=== PATIENT | male | born 1995 | race Caucasian/White ===

== ENCOUNTER 2024-02-11 20:58 | Emergency (ER) | payer MEDICAID ==
[~2024-02-11] VITALS: Ht 188 cm; Wt 114.2 kg
[2024-02-11 23:13] LABS: BASOPHILS % 0.9 % (0.0-2.0); EOSINOPHILS % 3.3 % (0.0-5.0); HEMOGLOBIN. 13.6 g/dL (14.0-18.0); LYMPHOCYTES % 21.9 % (20.0-50.0); MEAN CORPUSCULAR HEMOGLOBIN 30.2 pg (28.0-32.0); MEAN CORPUSCULAR HGB CONC 33.9 g/dL (31.0-37.0); MEAN CORPUSCULAR VOLUME 88.9 fL (80.0-94.0); MEAN PLATELET VOLUME 8.1 fl (7.4-10.4); MONOCYTES % 8.8 % (2.0-8.0); NEUTROPHILS % 65.1 % (40.0-76.0); PLATELET 191 x1000/uL (130-400); WHITE BLOOD COUNT 14.4 x1000/uL (4.5-11.0)
[2024-02-11 23:25] LABS: TROPONIN I HIGH SENSITIVITY 15 ng/L (3.0-53)
[2024-02-11 23:59] LABS: CHLORIDE 107 mEq/L (98-107); POTASSIUM 3.9 mEq/L (3.5-5.1); SODIUM 138 mEq/L (136-145)
[2024-02-12] LABS: CARBON DIOXIDE 26 mEq/L (21-32); D-DIMER 0.33 mg/L FEU (<0.50); INR 0.9; PARTIAL THROMBOPLASTIN TIME 29.1 sec (23.4-31.0); PROTHROMBIN TIME 10.5 sec (9.6-11.0)
[2024-02-12 00:05] LABS: GLUCOSE 99 mg/dL (70-105); UREA NITROGEN BLOOD 8 mg/dL (9-23)
[2024-02-12] MEDS ORDERED: ALBU90AE INH (01:50)
[2024-02-12 02:01] LABS: TROPONIN I HIGH SENSITIVITY 15 ng/L (3.0-53)
[2024-02-12] MEDS: ALBUTEROL (0.083%) 2.5MG/3ML NEB HHN STA (02:08)
[2024-02-12 02:10] VITALS: PULSE 77; RESP 22; O2SAT 95
[2024-02-12 02:14] VITALS: BP 146/83; PULSE 89; RESP 18; TEMP 36.89184; O2SAT 97
== END 2024-02-12 02:16 | disposition home or self-care (01) ==
LOC: ER 20:58
DX: J45.901 Unspecified asthma with (acute) exacerbation (principal); Z88.0 Allergy status to penicillin
CPT/HCPCS: 80048; 83880; 85025; 85379; 85610; 85730; 84484 ×2; 36415 ×2; 71045; 93005 ×2; 99285; 94640; Z7610 ×3